=== PATIENT | female | born 1975 | race Caucasian/White ===

== ENCOUNTER 2017-02-07 13:57 | Outpatient (CLI) | payer MEDICAID ==
[2017-02-07 14:35] LABS: BASOPHILS % (AUTO) 0.7 %; EOSINOPHILS % (AUTO) 0.8 %; HCT - HEMATOCRIT 35.4 % (37.0-47.0); HGB - HEMOGLOBIN 11.9 g/dL (12.0-16.0); LYMPHOCYTES # (AUTO) 1.9 10^3/uL (1.5-3.5); LYMPHOCYTES % (AUTO) 34.7 %; MEAN CORPUSCULAR HEMOGLOBIN 30.6 pg (27.0-31.0); MEAN CORPUSCULAR HGB CONC 33.7 g/dL (32.0-36.0); MEAN PLATELET VOLUME 6.9 fL (7.9-10.8); MONOCYTES # (AUTO) 0.5 10^3/uL (0.0-1.0); MONOCYTES % (AUTO) 9.3 %; NEUTROPHILS % (AUTO) 54.5 %; NUCLEATED RED BLOOD CELLS AUTO 0.1 /100WBC; RED CELL DISTRIBUTION WIDTH 14.7 % (12.0-15.0); UNCORRECTED WHITE BLOOD COUNT 5.4 x10^3/uL; WHITE BLOOD COUNT 5.4 x10^3/uL (4.8-10.8)
[2017-02-07 14:57] LABS: ALBUMIN/GLOBULIN RATIO 1.5 (1.0-2.2); BILIRUBIN,TOTAL 0.6 mg/dL (0.2-1.0); BUN - BLOOD UREA NITROGEN 8 mg/dL (6-20); CALCIUM 9.1 mg/dL (8.5-10.3); CARBON DIOXIDE - CO2 27 mmol/L (21-32); CHLORIDE 100 mmol/L (101-111); CREATININE 0.7 mg/dL (0.4-1.0); GFR - MDRD 93 (>89); GLUCOSE 95 mg/dL (70-100); POTASSIUM 3.9 mmol/L (3.5-5.0); SODIUM 136 mmol/L (135-145); TOTAL PROTEIN 7.9 g/dL (6.7-8.2)
== END 2017-02-07 13:58 | disposition home or self-care (01) ==
LOC: LAB 13:57
PROVIDERS: ATTEND Registered Nurse
DX: Z79.899 Other long term (current) drug therapy (principal)
CPT/HCPCS: 36415; 80053; 80306; 84443; 85025

== ENCOUNTER 2017-11-07 16:45 | Emergency (ER) | payer MEDICAID ==
[2017-11-07] MEDS ORDERED: SODIUM CHLORIDE 0.9% 1,000 ML IV ONE (17:03)
--- NOTE | 2017-11-07 17:07 | ED Physician Documentation ---
PD HPI OVERDOSE - Stated complaint Stated Complaint: POSS OD - Chief complaint Chief Complaint: MHE - History obtained from History obtained from: Patient - History of Present Illness Timing - onset: Last night (At 0300 had some disagreement with her . Took Oxcarbazepine 300mg apprx 30 tabs, Also prazosin 100 mg about 30 tabs as well. She says she was not suicidal just frustrated and acted out of stupidity. At this point she feels sleepy but has no other symptoms. Specifically no nausea, chest pain, shortness of breath. 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 - Present Medications Home Medications: Ambulatory Orders Medication Instructions Recorded Confirmed Dextroamphetamine/Amphetamine 10 mg PO BID 06/27/13 06/27/13 [Amphetamine Salts 10 mg Tab] LORazepam [Ativan] 1 mg PO BID PRN 06/27/13 06/27/13 Lamotrigine 300 mg PO DAILY 06/27/13 06/27/13 Lurasidone HCl [Latuda] 80 mg PO DAILY 06/27/13 06/27/13 OXcarbazepine [Trileptal] 300 mg PO BID 06/27/13 06/27/13 Perphenazine 16 mg PO DAILY 06/27/13 06/27/13 Prazosin HCl [Minipress] 2 mg PO HS 06/27/13 06/27/13 traZODone [Desyrel] 100 mg PO HS 06/27/13 06/27/13 - Allergies Allergies/Adverse Reactions: Allergies Allergy/AdvReac Type Severity Reaction Status Date / Time Penicillins AdvReac Unknown unknown Verified 06/27/13 02:53 - Social History Does the pt smoke?: No Smoking Status: Never smoker Does the pt drink ETOH?: Yes Does the pt have substance abuse?: No - Immunizations Immunizations are current?: No Immunizations: TDAP >10years/unknown PD ED PE NORMAL - Vitals Vital signs reviewed: Yes (tachycardic) - General General: Alert and oriented X 3, Other (Slightly somnolent, NAD) - HEENT HEENT: Other (small pupils, reactive) - Neck Neck: Supple, no meningeal sign, No bony TTP - Cardiac Cardiac: RRR, No murmur - Respiratory Respiratory: No respiratory distress, Clear bilaterally - Abdomen Abdomen: Normal bowel sounds, Soft, Non tender - Back Back: No CVA TTP, No spinal TTP - Derm Derm: Normal color, Warm and dry - Extremities Extremities: No edema, No calf tenderness / cord - Neuro Neuro: Alert and oriented X 3, Normal speech Eye Opening: Spontaneous Motor: Obeys Commands Verbal: Oriented GCS Score: 15 - Psych Psych: Normal mood, Normal affect Results - Vitals Vitals: Vital Signs - 24 hr 11/07/17 11/07/17 16:46 18:55 Temperature 36.8 C Heart Rate 127 H 120 H Respiratory 18 18 Rate Blood Pressure 141/95 H 120/77 O2 Saturation 99 98 Oxygen O2 Source Room air - EKG (time done) 1706 Rate: Rate (enter#) (109) Rhythm: Sinus tachycardia Wheeler: Normal Intervals: Normal MO QRS: Normal Ischemia: Normal ST segments Computer interpretation: Agree with computer - Labs Labs: Laboratory Tests 11/07/17 11/07/17 11/07/17 17:15 17:15 18:10 WBC 6.0 RBC 3.55 L Hgb 10.6 L Hct 31.8 L MCV 89.6 MCH 29.8 MCHC 33.2 RDW 16.2 H Plt Count 288 MPV 6.7 L Neut # 4.4 Lymph # 1.0 L [place] # 0.5 Eos # 0.1 Baso # 0.1 Absolute Nucleated RBC 0.00 Nucleated RBC % 0.0 Sodium 136 Potassium 4.1 Chloride 102 Carbon Dioxide 21 Anion Gap 13.0 BUN 10 Creatinine 0.7 Estimated GFR (MDRD) 93 Glucose 105 H Calcium 8.6 Total Bilirubin 0.6 AST 32 ALT 18 Alkaline Phosphatase 43 Total Protein 7.2 Albumin 4.2 Globulin 3.0 Albumin/Globulin Ratio 1.4 Lipase < 10 L Urine Color YELLOW Urine Clarity CLOUDY Urine pH 5.0 Ur Specific [place] >=1.030 H Urine Protein NEGATIVE Urine Glucose (UA) NEGATIVE Urine Ketones NEGATIVE Urine Occult Blood TRACE-LYSE Urine Nitrite POSITIVE H Urine Bilirubin NEGATIVE Urine Urobilinogen 0.2 (NORMAL) Ur Leukocyte Esterase TRACE H Urine RBC 0-5 Urine WBC 6-10 H Ur Squamous Epith Cells MANY Squamous H Urine Bacteria Moderate H Ur Microscopic Review INDICATED Urine Culture Comments NOT INDICATED Urine HCG, Qual NEGATIVE Salicylates < 6.0 Urine Opiates Screen NEGATIVE Ur Oxycodone Screen NEGATIVE Urine Methadone Screen NEGATIVE Ur Propoxyphene Screen NEGATIVE Acetaminophen < 10 L Ur Barbiturates Screen NEGATIVE Ur Tricyclics Screen POSITIVE H Ur Phencyclidine Scrn NEGATIVE Ur Amphetamine Screen NEGATIVE U Methamphetamines Scrn NEGATIVE U Benzodiazepines Scrn NEGATIVE Urine Cocaine Screen NEGATIVE U Cannabinoids Screen NEGATIVE Ethyl Alcohol < 5.0 PD MEDICAL DECISION MAKING - ED course ED course: Called poison control, given the time course, now about 14 hours after the events, risk of toxicity is low but they do recommend baseline labs and EKG, on which her QRS and QTc were normal. The corroborates when interviewed in private that he does not think she is suicidal. Heart rate came down to about 105 with the administration of IV fluids. She was sleepy but easily arousable and managed to ambulate in the [place] without difficulty. She was interviewed again and still denied suicidality. No sx of UTI and +squams. Departure - Departure Disposition: 01 Home, Self Care Clinical Impression: Anger reaction Drug overdose Qualifiers: Encounter type: initial encounter Injury intent: accidental or unintentional Qualified Code(s): T50.901A - Poisoning by unspecified drugs, medicaments and biological substances, accidental (unintentional), initial encounter Condition: Good Record reviewed to determine appropriate education?: Yes Instructions: ED Overdose Accidental Comments: Be careful with your medications and take them only as prescribed. Return if worse. No driving for 48 hours. Discharge Date/Time: 11/07/17 19:07
[2017-11-07 17:29] LABS: BASOPHILS # (AUTO) 0.1 10^3/uL (0.0-0.1); BASOPHILS % (AUTO) 1.1 %; EOSINOPHILS # (AUTO) 0.1 10^3/uL (0.0-0.7); HGB - HEMOGLOBIN 10.6 g/dL (12.0-16.0); MEAN CORPUSCULAR HEMOGLOBIN 29.8 pg (27.0-31.0); MEAN CORPUSCULAR HGB CONC 33.2 g/dL (32.0-36.0); MEAN CORPUSCULAR VOLUME 89.6 fL (81.0-99.0); MEAN PLATELET VOLUME 6.7 fL (7.9-10.8); MONOCYTES # (AUTO) 0.5 10^3/uL (0.0-1.0); MONOCYTES % (AUTO) 8.4 %; NEUTROPHILS # (AUTO) 4.4 10^3/uL (1.5-6.6); NEUTROPHILS % (AUTO) 73.5 %; PLT - PLATELET COUNT 288 10^3/uL (130-450); RED BLOOD COUNT 3.55 10^6/uL (4.20-5.40); RED CELL DISTRIBUTION WIDTH 16.2 % (12.0-15.0)
[2017-11-07 17:45] LABS: ACETAMINOPHEN < 10 ug/mL (10-30); ALBUMIN 4.2 g/dL (3.2-5.5); ALBUMIN/GLOBULIN RATIO 1.4 (1.0-2.2); ALKALINE PHOSPHATASE 43 IU/L (42-121); ALT ALANINE AMINOTRANSFERASE 18 IU/L (10-60); AST ASPARTATE AMINOTRANSFERASE 32 IU/L (10-42); BILIRUBIN,TOTAL 0.6 mg/dL (0.2-1.0); BUN - BLOOD UREA NITROGEN 10 mg/dL (6-20); CALCIUM 8.6 mg/dL (8.5-10.3); CARBON DIOXIDE - CO2 21 mmol/L (21-32); CHLORIDE 102 mmol/L (101-111); CREATININE 0.7 mg/dL (0.4-1.0); GFR - MDRD 93 (>89); GLUCOSE 105 mg/dL (70-100); LIPASE < 10 U/L (22-51); SALICYLATE < 6.0 mg/dL; SODIUM 136 mmol/L (135-145); TOTAL PROTEIN 7.2 g/dL (6.7-8.2)
[2017-11-07 18:21] LABS: MUDS CUTOFF CONCENTRATIONS CUTOFF CONC BELOW:
[2017-11-07 18:29] LABS: GLUCOSE, URINE (UA) NEGATIVE (NEGATIVE); KETONES,URINE (UA) NEGATIVE (NEGATIVE); LEUKOCYTE ESTERASE, URINE TRACE (NEGATIVE); NITRITE,URINE POSITIVE (NEGATIVE); OCCULT BLOOD,URINE TRACE-LYSE (NEGATIVE); PROTEIN,URINE NEGATIVE (NEGATIVE); UROBILINOGEN,URINE 0.2 (NORMAL) E.U./dL (NORMAL)
[2017-11-07 18:31] LABS: BILIRUBIN,URINE NEGATIVE (NEGATIVE); CLARITY,URINE CLOUDY (CLEAR); HCG UR QUAL NEGATIVE; ICTOTEST,URINE NEGATIVE
[2017-11-07 18:36] LABS: COCAINE SCREEN URINE NEGATIVE (NEGATIVE)
[2017-11-07 18:37] LABS: AMPHETAMINE SCREEN,URINE NEGATIVE (NEGATIVE); BENZODIAZEPINES SCREEN, URINE NEGATIVE (NEGATIVE); METHADONE SCREEN, URINE NEGATIVE (NEGATIVE); METHAMPHETAMINES SCREEN, URINE NEGATIVE (NEGATIVE); OPIATE SCREEN, URINE NEGATIVE (NEGATIVE); OXYCODONE SCREEN, URINE NEGATIVE (NEGATIVE); PROPOXYPHENE SCREEN, URINE NEGATIVE (NEGATIVE); TRICYCLIC ANTIDEPRESSANT,URINE POSITIVE (NEGATIVE)
[2017-11-07 18:41] LABS: BACTERIA,URINE Moderate /HPF (None Seen); RBC,URINE 0-5 /HPF (0-5); SQUAMOUS EPITHELIAL CELL,UR MANY Squamous (<= Few)
[2017-11-07 19:06] VITALS: BP 120/77
== END 2017-11-07 19:07 | disposition home or self-care (01) ==
LOC: ED 16:45
DX: T42.1X1A Poisoning by iminostilbenes, accidental (unintentional), initial encounter (principal); T44.6X1A Poisoning by alpha-adrenoreceptor antagonists, accidental (unintentional), initial encounter; R00.0 Tachycardia, unspecified; R45.4 Irritability and anger
CPT/HCPCS: 36415; 80053; 80306; 80307; 80320; 80329; 81001; 81003; 81025; 83690; 85025; 87086; 93005; 96360; 99283; 99284

== ENCOUNTER 2017-12-22 00:49 | Outpatient (CLI) | payer MEDICAID | END 2017-12-22 00:50 | disposition EMS.NT | LOC: EMS 00:49 | PROVIDERS: ATTEND Surgery | DX: T54.2X1A Toxic effect of corrosive acids and acid-like substances, accidental (unintentional), initial encounter (principal); T22.511A Corrosion of first degree of right forearm, initial encounter; Y93.E9 Activity, other interior property and clothing maintenance; Y92.031 Bathroom in apartment as the place of occurrence of the external cause ==

== ENCOUNTER 2018-01-31 10:16 | Emergency (ER) | payer MEDICAID, OTHER ==
[2018-01-31] MEDS ORDERED: ONDANSETRON ODT 4 MG TABLET TL STA (10:24)
--- NOTE | 2018-01-31 12:02 | ED Physician Documentation ---
PD HPI NVD - Stated complaint Stated Complaint: FIT FOR CONFINEMENT - Chief complaint Chief Complaint: Abd Pain - History obtained from History obtained from: Patient, Police - History of Present Illness Timing - onset: Enter time (2300), Last night Timing - duration: Hours Timing - details: Abrupt onset, Still present Associated symptoms: Abdominal pain Improved by: Vomiting, Meds Worsened by: Eating Similar symptoms before: No diagnosis Recently seen: Not recently seen - Additonal information Additional information: 42-year-old female with a history of substance abuse has had intermittent nausea and vomiting over the past several months. She has not seen her doctor about this. She states that symptoms typically last from several hours to overnight. This is sometimes accompanied by some abdominal pain. She has been apprehended by police and is being taken into custody and they have brought her here for fit for confinement. The patient states that she began having some vomiting last night at about 11 PM. She is improved after taking Zofran on arrival to the emergency department. Review of Systems Constitutional: denies: Fever Eyes: denies: Decreased vision Ears: denies: Ear pain Nose: denies: Congestion Throat: denies: Sore throat Cardiac: denies: Chest pain / pressure Respiratory: denies: Dyspnea, Cough GI: reports: Abdominal Pain, Nausea, Vomiting. 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 - Present Medications Home Medications: Ambulatory Orders Medication Instructions Recorded Confirmed Ondansetron Odt [Zofran] 4 mg TL Q6H PRN #10 tablet 01/31/18 - Allergies Allergies/Adverse Reactions: Allergies Allergy/AdvReac Type Severity Reaction Status Date / Time Penicillins AdvReac Unknown unknown Verified 01/31/18 10:20 - Social History Does the pt smoke?: No Smoking Status: Never smoker Does the pt drink ETOH?: Yes Does the pt have substance abuse?: No - Immunizations Immunizations are current?: No Immunizations: TDAP >10years/unknown PD ED PE NORMAL - Vitals Vital signs reviewed: Yes (hypertensive ) - General General: Alert and oriented X 3, No acute distress, Well developed/nourished - HEENT HEENT: Atraumatic, PERRL, EOMI - Neck Neck: Supple, no meningeal sign, No bony TTP - Cardiac Cardiac: RRR, No murmur - Respiratory Respiratory: No respiratory distress, Clear bilaterally - Abdomen Abdomen: Soft, No organomegaly, Other (mild epigastric tenderness without guarding or rebound. ) - Back Back: No CVA TTP, No spinal TTP - Derm Derm: Normal color, Warm and dry, No rash - Extremities Extremities: No deformity, No edema - Neuro Neuro: No motor deficit, No sensory deficit Eye Opening: Spontaneous Motor: Obeys Commands Verbal: Oriented GCS Score: 15 - Psych Psych: Normal mood, Normal affect Results - Vitals Vitals: Vital Signs - 24 hr 01/31/18 10:17 Temperature 36.5 C Heart Rate 47 L Respiratory 18 Rate Blood Pressure 116/95 H O2 Saturation 95 Oxygen O2 Source Room air Procedures - Bedside sono Bedside sono by EMP: With the use of bedside ultrasound the right upper quadrant is imaged with gallbladder appears without obvious stone the wall does not appear thickened there is no pericholecystic fluid. The gallbladder itself is sonographically nontender. - IVC sono (time) 1115 Bedside IVC sono: IVC measures (cm) (1.27), IVC collapsed c insp (cm) (complete) , Dehydration (est 1 liter) PD MEDICAL DECISION MAKING - ED course Complexity details: reviewed results, re-evaluated patient, considered differential, d/w patient ED course: 42-year-old female is brought to the hospital by police for fit for confinement. She has been vomiting since last night and on interrogation of the inferior vena cava she is found to be mildly dehydrated with an estimated deficit of 1 L. She is administered Zofran sublingual and is able to drink a liter of fluid without vomiting. She is discharged from the emergency department for for confinement. Departure - Departure Disposition: 01 Home, Self Care Clinical Impression: Gastroenteritis Condition: Stable Instructions: ED Nausea Vomiting Follow-Up: [facility] [Provider Group] Prescriptions: Ondansetron Odt [Zofran] 4 mg TL Q6H PRN #10 tablet PRN Reason: Nausea / Vomiting
[2018-01-31 12:28] VITALS: BP 103/87
== END 2018-01-31 12:28 | disposition home or self-care (01) ==
LOC: EDUNIT# → ED 10:16
DX: K52.9 Noninfective gastroenteritis and colitis, unspecified (principal); E86.0 Dehydration
CPT/HCPCS: 99283; Q0162

== ENCOUNTER 2018-06-13 09:49 | Emergency (ER) | payer MEDICAID, OTHER ==
[2018-06-13] MEDS ORDERED: MELOXICAM 7.5 MG TABLET PO STA (10:56)
--- NOTE | 2018-06-13 11:04 | ED Physician Documentation ---
PD HPI LOWER EXT INJURY - Stated complaint Stated Complaint: KNEE PX - Chief complaint Chief Complaint: Ext Problem - History obtained from History obtained from: Patient, Family - History of Present Illness PD HPI LOW EXT INJURY LOCATION: Right, Knee Type of injury: Fall Where injury occurred: Home Timing - onset: Last night Timing - duration: Days (1) Timing - details: Abrupt onset Pain level max: 8 Pain level now: 8 Improved by: Rest, Ice, Immobilization Worsened by: Moving, Palpating Associated symptoms: No: Weakness, Numbness, Tingling, Swelling Contributing factors: No: Anticoagulated, Prior ortho surgery Recently seen: Not recently seen - Additional information Additional information: Patient tripped and fell, landing on the concrete on her right knee, continued pain today Review of Systems Constitutional: denies: Fever, Chills GI: denies: Vomiting : denies: Now EGA Skin: denies: Rash Musculoskeletal: denies: Neck pain, Back pain PD PAST MEDICAL HISTORY - Past Medical History Past Medical History: No Cardiovascular: None Respiratory: None Neuro: None Endocrine/Autoimmune: Type 1 diabetes GI: None 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: 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 : None HEENT: None Psych: Depression, Post traumatic stress disorder Musculoskeletal: None Derm: None - Past Surgical History 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: Yes Immunizations: TDAP >10years/unknown - POLST Patient has POLST: No PD ED PE NORMAL - Vitals Vital signs reviewed: Yes - General General: Alert and oriented X 3, No acute distress - Derm Derm: Warm and dry - Extremities Extremities: Other (Right lower extremity - Tender to palpation over the anterior aspect of the patella. No joint effusion. ACL, MCL, PCL, LCL are intact. Otherwise normal exam. NVI) - Neuro Neuro: Alert and oriented X 3 Results - Vitals Vitals: Vital Signs - 24 hr 06/13/18 10:24 Temperature 36.6 C Heart Rate 88 Respiratory 18 Rate Blood Pressure 145/85 H O2 Saturation 96 Oxygen O2 Source Room air - Rads (name of study) Right knee x-ray Radiology: Prelim report reviewed, EMP read contemporaneously, See rad report (Normal x-ray of the right knee) PD MEDICAL DECISION MAKING - ED course Complexity details: reviewed results, re-evaluated patient, considered differential, d/w patient ED course: Patient is a 42-year-old female who presents to the emergency department with a right knee contusion. Crutches given and will weight-bear as tolerated. Kennedy wrap also applied. Patient counseled regarding signs and symptoms for which I believe and urgent re-evaluation would be necessary. Patient with good understanding of and agreement to plan and is comfortable going home at this time This document was made in part using voice recognition software. While efforts are made to proofread this document, sound alike and grammatical errors may occur. - Sepsis Event Vital Signs: Vital Signs - 24 hr 06/13/18 10:24 Temperature 36.6 C Heart Rate 88 Respiratory 18 Rate Blood Pressure 145/85 H O2 Saturation 96 Oxygen O2 Source Room air Departure - Departure Disposition: 01 Home, Self Care Clinical Impression: Contusion of knee, right Qualifiers: Encounter type: initial encounter Qualified Code(s): S80.01XA - Contusion of right knee, initial encounter Condition: Good Instructions: ED Contusion Lower Ext Follow-Up: your,doctor in 1 week [Other] Prescriptions: Ibuprofen [Motrin] 800 mg PO Q8H PRN #30 tablet PRN Reason: PAIN &/OR FEVER Comments: Return if you worsen. You may bear weight as tolerated. your xrays are normal today. Forms: Activity restrictions Discharge Date/Time: 06/13/18 12:07
--- NOTE | 2018-06-13 11:38 | XRAY Report ---
Reason: injury Procedure Date: 06/13/2018 Accession Number: [id number] / [id number] Procedure: XR - Knee 4 View RT CPT Code: FULL RESULT: EXAM: RIGHT KNEE RADIOGRAPHY EXAM DATE: 06/13/2018 11:02 AM. CLINICAL HISTORY: Pain and decreased range of motion after falling on well cover. COMPARISON: None. TECHNIQUE: 4 views. FINDINGS: Bones: Normal. No fractures or bone lesions. Joints: Normal. No effusion. No subluxations. Soft Tissues: Probable anterior soft tissue swelling. IMPRESSION: No acute osseous abnormality. RADIA
[2018-06-13 12:06] VITALS: BP 136/72
== END 2018-06-13 12:07 | disposition home or self-care (01) ==
LOC: ED 09:49
DX: S80.01XA Contusion of right knee, initial encounter (principal); W01.198A Fall on same level from slipping, tripping and stumbling with subsequent striking against other object, initial encounter; Y92.009 Unspecified place in unspecified non-institutional (private) residence as the place of occurrence of the external cause; E10.9 Type 1 diabetes mellitus without complications
CPT/HCPCS: 73564; 99283; A9270

== ENCOUNTER 2018-07-02 22:54 | Outpatient (CLI) | payer MEDICAID | END 2018-07-02 22:55 | disposition EMS.NT | LOC: EMS 22:54 | PROVIDERS: ATTEND Surgery | DX: S41.112A Laceration without foreign body of left upper arm, initial encounter (principal); S41.111A Laceration without foreign body of right upper arm, initial encounter; X78.9XXA Intentional self-harm by unspecified sharp object, initial encounter ==

== ENCOUNTER 2018-10-22 00:25 | Outpatient (CLI) | payer MEDICAID | END 2018-10-22 00:26 | disposition critical access hospital (66) | LOC: EMS 00:25 | PROVIDERS: ATTEND Surgery | DX: R45.851 Suicidal ideations (principal) | CPT/HCPCS: A0425; A0429 ==

== ENCOUNTER 2018-10-22 00:43 | Emergency (ER) | payer MEDICAID ==
[2018-10-22 01:16] LABS: MUDS CUTOFF CONCENTRATIONS CUTOFF CONC BELOW:
[2018-10-22 01:18] LABS: BILIRUBIN,URINE NEGATIVE (NEGATIVE); GLUCOSE, URINE (UA) NEGATIVE (NEGATIVE); KETONES,URINE (UA) NEGATIVE (NEGATIVE); LEUKOCYTE ESTERASE, URINE NEGATIVE (NEGATIVE); NITRITE,URINE NEGATIVE (NEGATIVE); OCCULT BLOOD,URINE NEGATIVE (NEGATIVE); PH,URINE 5.5 PH (5.0-7.5); PROTEIN,URINE NEGATIVE (NEGATIVE); UROBILINOGEN,URINE 0.2 (NORMAL) E.U./dL (NORMAL)
[2018-10-22 01:20] LABS: CLARITY,URINE CLEAR (CLEAR); HCG UR QUAL NEGATIVE
[2018-10-22 01:29] LABS: AMPHETAMINE SCREEN,URINE NEGATIVE (NEGATIVE); BENZODIAZEPINES SCREEN, URINE NEGATIVE (NEGATIVE); COCAINE SCREEN URINE NEGATIVE (NEGATIVE); METHADONE SCREEN, URINE NEGATIVE (NEGATIVE); METHAMPHETAMINES SCREEN, URINE NEGATIVE (NEGATIVE); OPIATE SCREEN, URINE NEGATIVE (NEGATIVE); OXYCODONE SCREEN, URINE NEGATIVE (NEGATIVE); PROPOXYPHENE SCREEN, URINE NEGATIVE (NEGATIVE); TRICYCLIC ANTIDEPRESSANT,URINE NEGATIVE (NEGATIVE)
[2018-10-22 01:37] LABS: BASOPHILS # (AUTO) 0.1 10^3/uL (0.0-0.1); BASOPHILS % (AUTO) 0.9 %; EOSINOPHILS # (AUTO) 0.1 10^3/uL (0.0-0.7); EOSINOPHILS % (AUTO) 0.9 %; LYMPHOCYTES # (AUTO) 1.7 10^3/uL (1.5-3.5); LYMPHOCYTES % (AUTO) 22.6 %; MEAN CORPUSCULAR HEMOGLOBIN 31.7 pg (27.0-31.0); MEAN CORPUSCULAR HGB CONC 33.7 g/dL (32.0-36.0); MEAN PLATELET VOLUME 6.5 fL (7.9-10.8); MONOCYTES # (AUTO) 0.8 10^3/uL (0.0-1.0); MONOCYTES % (AUTO) 10.9 %; NEUTROPHILS % (AUTO) 64.7 %; PLT - PLATELET COUNT 344 10^3/uL (130-450); RED BLOOD COUNT 3.78 10^6/uL (4.20-5.40); RED CELL DISTRIBUTION WIDTH 14.9 % (12.0-15.0); WHITE BLOOD COUNT 7.7 x10^3/uL (4.8-10.8)
[2018-10-22 01:49] LABS: ALBUMIN/GLOBULIN RATIO 1.2 (1.0-2.2); BILIRUBIN,TOTAL 0.4 mg/dL (0.2-1.0); CALCIUM 8.5 mg/dL (8.5-10.3); CREATININE 0.5 mg/dL (0.4-1.0); TOTAL PROTEIN 7.4 g/dL (6.7-8.2)
[2018-10-22] MEDS ORDERED: OLANZapine ODT 5 MG TABLET TL ONE (03:06)
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
--- NOTE | 2018-10-22 11:33 | ED Physician Documentation ---
ED Addendum - Addendum Addendum: The patient has slept overnight and is sober now. She denies any [facility] ideation at this point. She is feeling a little bit anxious. Social work talked with her in do not see any suicide risk at this time. I am talking with her and she promises no self-harm and has no self-harm ideation and states she really cares about her kids and wants to be there for them. I think she can be released. She has a counseling appointment being set up. 10/22/18 11:32
[2018-10-22 11:35] VITALS: BP 138/86
[2018-10-22] MEDS ORDERED: LORazepam 0.5 MG TABLET PO STA (11:36)
== END 2018-10-22 11:38 | disposition home or self-care (01) ==
LOC: EDUNIT# → ED 00:43
DX: F10.920 Alcohol use, unspecified with intoxication, uncomplicated (principal); T14.91XA Suicide attempt, initial encounter; X78.8XXA Intentional self-harm by other sharp object, initial encounter; E10.9 Type 1 diabetes mellitus without complications
CPT/HCPCS: 36415; 80053; 80306; 80320; 81001; 81003; 81025; 83690; 85025; 87086; 99283

== ENCOUNTER 2019-01-31 14:12 | Outpatient (CLI) | payer MEDICAID ==
[2019-01-31 18:57] LABS: BASOPHILS # (AUTO) 0.1 10^3/uL (0.0-0.1); BASOPHILS % (AUTO) 2.2 %; EOSINOPHILS # (AUTO) 0.1 10^3/uL (0.0-0.7); EOSINOPHILS % (AUTO) 2.3 %; HGB - HEMOGLOBIN 11.7 g/dL (12.0-16.0); LYMPHOCYTES # (AUTO) 1.3 10^3/uL (1.5-3.5); LYMPHOCYTES % (AUTO) 33.7 %; MEAN CORPUSCULAR HEMOGLOBIN 31.2 pg (27.0-31.0); MEAN CORPUSCULAR HGB CONC 32.8 g/dL (32.0-36.0); MEAN CORPUSCULAR VOLUME 95.1 fL (81.0-99.0); MEAN PLATELET VOLUME 7.5 fL (7.9-10.8); MONOCYTES # (AUTO) 0.5 10^3/uL (0.0-1.0); MONOCYTES % (AUTO) 12.7 %; NEUTROPHILS # (AUTO) 1.9 10^3/uL (1.5-6.6); NEUTROPHILS % (AUTO) 49.1 %; PLT - PLATELET COUNT 286 10^3/uL (130-450); RED BLOOD COUNT 3.74 10^6/uL (4.20-5.40); RED CELL DISTRIBUTION WIDTH 13.4 % (12.0-15.0); WHITE BLOOD COUNT 3.8 x10^3/uL (4.8-10.8)
[2019-01-31 19:40] LABS: ALBUMIN/GLOBULIN RATIO 1.3 (1.0-2.2); ALKALINE PHOSPHATASE 56 IU/L (42-121); ALT ALANINE AMINOTRANSFERASE 17 IU/L (10-60); AST ASPARTATE AMINOTRANSFERASE 24 IU/L (10-42); BILIRUBIN,TOTAL 0.7 mg/dL (0.2-1.0); BUN - BLOOD UREA NITROGEN 10 mg/dL (6-20); CALCIUM 8.6 mg/dL (8.5-10.3); CARBON DIOXIDE - CO2 23 mmol/L (21-32); CHLORIDE 100 mmol/L (101-111); CHOL/HDL RATIO 2.4 (<4.4); CHOLESTEROL 181 mg/dL; CREATININE 0.6 mg/dL (0.4-1.0); GFR - MDRD 110 (>89); GLUCOSE 91 mg/dL (70-100); HDL CHOLESTEROL 76 mg/dL; LDL CHOLESTEROL,CALCULATED 93 mg/dL; LDL/HDL RATIO 1.2 (<4.4); SODIUM 134 mmol/L (135-145); TOTAL PROTEIN 7.1 g/dL (6.7-8.2); VLDL CHOLESTEROL 12 mg/dL
[2019-01-31 19:44] LABS: THYROID STIMULATING HORMONE 0.78 uIU/mL (0.34-5.60)
[2019-01-31 19:56] LABS: FOLATE 9.28 ng/mL (5.90 - >24.8)
== END 2019-01-31 23:59 | disposition home or self-care (01) ==
LOC: LAB.N 14:12
PROVIDERS: ATTEND Physician Assistant Medical
DX: I10 Essential (primary) hypertension (principal); E55.9 Vitamin D deficiency, unspecified; R53.83 Other fatigue
CPT/HCPCS: 36415; 80053; 80061; 82306; 82607; 82746; 83721; 84443; 85025

== ENCOUNTER 2019-02-12 05:19 | Outpatient (CLI) | payer MEDICAID | END 2019-02-12 05:20 | disposition EMS.NT | LOC: EMS 05:19 | PROVIDERS: ATTEND Surgery | DX: Z03.89 Encounter for observation for other suspected diseases and conditions ruled out (principal) ==

== ENCOUNTER 2019-06-05 15:42 | Emergency (ER) | payer MEDICAID ==
[2019-06-05 15:48] VITALS: BP 147/88
[2019-06-05] MEDS ORDERED: DOXEPIN 10 MG CAPSULE PO STA (15:58)
[2019-06-05] MEDS ORDERED: predniSONE 20 MG TABLET PO STA (15:58)
[2019-06-05] MEDS ORDERED: cephALEXin 250 MG CAPSULE PO STA (15:58)
--- NOTE | 2019-06-05 16:01 | ED Physician Documentation ---
PD HPI SKIN - Stated complaint Stated Complaint: R ARM IRRITATION - Chief complaint Chief Complaint: Wound - History obtained from History obtained from: Patient - History of Present Illness Timing - onset: Yesterday (She thinks she was bitten by something yesterday at work, she has a burning area on to the anterior right forearm. There was no recollected bite. 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: section - Present Medications Home Medications: Ambulatory Orders Medication Instructions Recorded Confirmed Cephalexin [Keflex] 500 mg PO Q6H #28 capsule 06/05/19 Doxepin [SINEquan] 10 mg PO TID PRN #30 capsule 06/05/19 predniSONE [Deltasone] 60 mg PO DAILY 5 Days #15 tablet 06/05/19 - Allergies Allergies/Adverse Reactions: Allergies Allergy/AdvReac Type Severity Reaction Status Date / Time bee venom protein (honey bee) Allergy Severe Anaphylaxis Verified 06/05/19 15:45 Penicillins Allergy Severe Anaphylaxis Verified 06/05/19 15:45 - Social History Does the pt smoke?: No Smoking Status: Never smoker Does the pt drink ETOH?: No Does the pt have substance abuse?: No - Immunizations Immunizations are current?: Yes Immunizations: TDAP >10years/unknown - POLST Patient has POLST: No PD ED PE NORMAL - Vitals Vital signs reviewed: Yes - General General: Alert and oriented X 3, No acute distress (There is a small area of induration and redness measuring in diameter to the anterior mid right forearm.) - Neuro Neuro: Alert and oriented X 3, Normal speech - Psych Psych: Normal mood, Normal affect Results - Vitals Vitals: Vital Signs - 24 hr 06/05/19 15:45 Temperature 36.7 C Heart Rate 106 H Respiratory 16 Rate Blood Pressure 147/88 H O2 Saturation 100 Oxygen O2 Source Room air Departure - Departure Disposition: 01 Home, Self Care Clinical Impression: Insect bite Qualifiers: Encounter type: initial encounter Site of insect bite: forearm Laterality: right Qualified Code(s): S50.861A - Insect bite (nonvenomous) of right forearm, initial encounter; W57.XXXA - Bitten or stung by nonvenomous insect and other nonvenomous arthropods, initial encounter Condition: Good Record reviewed to determine appropriate education?: Yes Instructions: ED Bite Sting Insect Local Allergic React Prescriptions: Cephalexin [Keflex] 500 mg PO Q6H #28 capsule Doxepin [SINEquan] 10 mg PO TID PRN #30 capsule PRN Reason: Itching predniSONE [Deltasone] 60 mg PO DAILY 5 Days #15 tablet Comments: RETURN IF WORSE Follow-up with your doctor on Monday if not better. Your blood pressure was elevated today on check into the emergency department. This does not mean that you have hypertension, it is a common phenomenon to come to the emergency department and have elevated blood pressure. I recommend that you see your primary care physician within the week to have it rechecked when you are feeling better.
== END 2019-06-05 16:12 | disposition home or self-care (01) ==
LOC: ED 15:42
DX: S50.861A Insect bite (nonvenomous) of right forearm, initial encounter (principal); W57.XXXA Bitten or stung by nonvenomous insect and other nonvenomous arthropods, initial encounter; Y92.511 Restaurant or cafe as the place of occurrence of the external cause; Y99.0 Civilian activity done for income or pay; E10.9 Type 1 diabetes mellitus without complications; R03.0 Elevated blood-pressure reading, without diagnosis of hypertension
CPT/HCPCS: 99283; A9270; J7512

== ENCOUNTER 2020-01-14 01:54 | Outpatient (CLI) | payer MEDICAID | END 2020-01-14 01:55 | disposition EMS.NT | LOC: EMS 01:54 | PROVIDERS: ATTEND Surgery | DX: R07.9 Chest pain, unspecified (principal) ==

== ENCOUNTER 2020-07-04 16:36 | Outpatient (CLI) | payer MEDICAID ==
--- NOTE | 2020-07-04 18:52 | Ultrasound Report ---
PROCEDURE: Pelvic w/Transvaginal INDICATIONS: ABN UTERINE BLEEDING, PELVIC PAIN TECHNIQUE: Real-time scanning was performed of the pelvic organs, with image documentation. Additional endovagi nal scanning was necessary due to incomplete visualization of the adnexal and endometrial structures by transabdominal scanning. COMPARISON: None. FINDINGS: Transabdominal scanning: Limited scanning through the kidneys shows no hydronephrosis. No pathologi c free abdominal or pelvic fluid. Endovaginal scanning: Uterus: Uterus is normal in size at 10.3 x 5 x 5.9 cm. The uterus demonstrates generalized heteroge neity, yet without focal fibroids. The endometrium measures 8 mm in combined thickness. Fluid is see n along the cervix. Nabothian cysts are incidentally noted. Ovaries: The right ovary measures 1.6 x 1.7 x 2.4 cm and the left ovary measures 1.9 x 2.2 x 1.4 cm. No significant ovarian abnormalities are seen. There are less than 12 follicles seen on each side. No adnexal masses are seen. IMPRESSION: Normal-appearing endometrial stripe with a mild amount of fluid seen along the cervix. No focal uterine lesion can be seen. The ovaries demonstrate an unremarkable appearance, with physiologic follicles seen.. Reviewed by: Vinod Easley MD on 07/04/2020 5:50 PM TONEY Approved by: Vinod Easley MD on 07/04/2020 5:50 PM TONEY Station ID: [id number]
== END 2020-07-04 16:37 | disposition home or self-care (01) ==
LOC: DI 16:36
PROVIDERS: ATTEND Obstetrics & Gynecology
DX: N93.8 Other specified abnormal uterine and vaginal bleeding (principal); R10.2 Pelvic and perineal pain
CPT/HCPCS: 76830; 76856

== ENCOUNTER 2020-07-24 15:48 | Outpatient (CLI) | payer MEDICAID ==
[2020-07-24 16:22] LABS: BASOPHILS # (AUTO) 0.1 10^3/uL (0.0-0.1); BASOPHILS % (AUTO) 1.5 %; EOSINOPHILS # (AUTO) 0.1 10^3/uL (0.0-0.7); EOSINOPHILS % (AUTO) 2.1 %; HGB - HEMOGLOBIN 12.1 g/dL (12.0-16.0); LYMPHOCYTES # (AUTO) 1.8 10^3/uL (1.5-3.5); LYMPHOCYTES % (AUTO) 29.5 %; MEAN CORPUSCULAR HGB CONC 32.6 g/dL (32.0-36.0); MEAN CORPUSCULAR VOLUME 98.1 fL (81.0-99.0); MEAN PLATELET VOLUME 9.4 fL (7.9-10.8); MONOCYTES # (AUTO) 0.8 10^3/uL (0.0-1.0); MONOCYTES % (AUTO) 12.5 %; NEUTROPHILS # (AUTO) 3.3 10^3/uL (1.5-6.6); NEUTROPHILS % (AUTO) 53.9 %; PLT - PLATELET COUNT 404 10^3/uL (130-450); RED BLOOD COUNT 3.78 10^6/uL (4.20-5.40); RED CELL DISTRIBUTION WIDTH 12.6 % (12.0-15.0); WHITE BLOOD COUNT 6.2 x10^3/uL (4.8-10.8)
== END 2020-07-24 15:49 | disposition home or self-care (01) ==
LOC: LAB 15:48
PROVIDERS: ATTEND Obstetrics & Gynecology
DX: Z01.818 Encounter for other preprocedural examination (principal); N92.0 Excessive and frequent menstruation with regular cycle; N93.8 Other specified abnormal uterine and vaginal bleeding; R10.2 Pelvic and perineal pain; Z20.828 Contact with and (suspected) exposure to other viral communicable diseases
CPT/HCPCS: 85025

== ENCOUNTER 2020-07-29 10:37 | Day surgery (SDC) | payer MEDICAID ==
[2020-07-29] MEDS ORDERED: PROPOFOL 1000 MG/100 ML IV ONE (10:38)
[2020-07-29] MEDS ORDERED: MIDAZOLAM 2 MG/2 ML VIAL IVP ONE (10:38)
[2020-07-29] MEDS ORDERED: fentaNYL 100 MCG/2 ML VIAL IVP ONE (10:38)
[2020-07-29] MEDS ORDERED: LACTATED RINGERS 1,000 ML IV ONE ×2 (11:00→17:47)
[2020-07-29 11:18] LABS: HCG UR QUAL NEGATIVE
--- NOTE | 2020-07-29 12:48 | ANESTHESIA ---
Pre-Anesthesia VS, & Labs - Diagnosis LUIS-3 - Procedure Leep under anesthesia Vital Signs: Temp Pulse Resp BP Pulse Ox 36.3 C L 72 18 127/78 98 07/29/20 11:01 07/29/20 11:01 07/29/20 11:01 07/29/20 11:01 07/29/20 11:01 Height: 5 ft Weight (kg): 60.9 kg Body Mass Index: 26.2 BMI Classification: Overweight - NPO >8 hours - Is Patient ?: No - Lab Results Lab results reviewed: Yes Home Medications and Allergies No Known Home Medications 07/20/20 Allergies/Adverse Reactions: Allergies Allergy/AdvReac Type Severity Reaction Status Date / Time bee venom protein (honey bee) Allergy Severe Anaphylaxis Verified 06/05/19 15:45 Penicillins Allergy Severe Anaphylaxis Verified 06/05/19 15:45 Anes History & Medical History - Anesthetic History Anesthesia Complications: reports: Other-see comment (Hives from something during ) Family history of Anesthesia Complications: Denies Family history of Malignant Hyperthermia: Denies - Medical History Cardiovascular: reports: Hypertension (No meds. WNL today) Pulmonary: reports: Sleep apnea (Per -is to go for sleep study) Gastrointestinal: reports: None Urinary: reports: None Neuro: reports: None Musculoskeletal: reports: None Endocrine/Autoimmune: reports: Other (Denies diabetes) Skin: reports: None Smoking Status: Never smoker Psychosocial: reports: Depression, Anxiety, Alcohol (No alcohol x 18 days. She and stopped, felt were drinking to much. No withdrawal sx.), Other (PTSD) History of Cancer?: No - Surgical History Gynecologic: section Exam General: Alert, Oriented x3, Cooperative, No acute distress Dental: WNL Mouth Openin Fingerbreadth Neck Mobility: Normal Mallampati classification: I Thyromental Distance: 4-6 cm Respiratory: Lungs clear Cardiovascular: Regular rate, Normal S1, Normal S2, No murmurs Mental/Cognitive Status: Alert/Oriented X3, Normal for patient Cognitive Status: Within normal limits Plan Anesthesia Type: MAC Consent for Procedure(s) Verified and Reviewed: Yes Code Status: Attempt Resuscitation ASA classification: 2-Mild systemic disease Is this case an emergency?: No (Discussed anesthesia plan, consent signed)
[2020-07-29] MEDS ORDERED: fentaNYL 100 MCG/2 ML VIAL IVP PRN (13:04)
[2020-07-29] MEDS ORDERED: ONDANSETRON 4 MG/2 ML VIAL IVP PRN (13:04)
[2020-07-29] MEDS ORDERED: METOCLOPRAMIDE 10 MG/2 ML VIAL IVP PRN (13:04)
[2020-07-29] MEDS ORDERED: ATROPINE ABBOJECT 1 MG/10 ML SYRINGE IVP PRN (13:04)
[2020-07-29] MEDS ORDERED: ePHEDrine 50 MG/ML VIAL IVP PRN (13:04)
[2020-07-29] MEDS ORDERED: MORPHINE 2 MG/ML CARPUJECT IVP PRN (13:04)
[2020-07-29] MEDS ORDERED: NALOXONE 0.4 MG/ML VIAL IVP PRN (13:04)
[2020-07-29] MEDS ORDERED: HYDROmorphone 0.5 MG/0.5 ML SYRINGE IVP PRN (13:04)
[2020-07-29] MEDS ORDERED: LACTATED RINGERS 1,000 ML IV SCH (14:00)
[2020-07-29] MEDS ORDERED: LIDOCAINE 1%-EPI 1:100000 20 ML MDV SUBQ ONE (17:15)
[2020-07-29] MEDS ORDERED: LIDOCAINE 2%-EPI 1:100000 20 ML MDV SUBQ ONE (17:16)
[2020-07-29] MEDS ORDERED: FERRIC SUBSULFATE 8 ML SOLUTION (FOR OR) TOP ONE (17:16)
--- NOTE | 2020-07-29 18:02 | OPERATIVE REPORT ---
Operative Report - General Procedure Date: 07/29/20 Planned Procedure: LEEP Procedure Pre-Op Diagnosis: LUIS 2/3 Procedure Performed: LEEP Procedure Post Op Diagnosis: Same - Procedure Note Primary Surgeon: Ashley Gonsalves MD Anesthesia Provider: Martin Durán CRNA Anesthesia Technique: Local, Moderate sedation Pathology: 1) Ectocervix 2) Endocervix; anterior 3) Endocervix, posterior 4) Endoecervix, right lateral in 2 pieces 5) Endocervical curettage IV Fluids (mL): 600 (see anesthesia report) Estimated Blood Loss (mL): 5 Urine Output (mL): 0 (voided prior to procedure) Indications: Patient is a 44 yo who was undergoing a pap smear in preparation for a hysterectomy and was found to have LUIS-3 on ECC. She presents for a LEEP procedure today. Findings: Patulous cervix without obvious lesions Complications: None - Other Other Information/Narrative: The patient was prepped and draped in the usual sterile fashion and placed in the dorsal lithotomy position. A grounding pad was placed on the patients right anterior thigh. A urine test was negative. A time out was performed, correctly identifying the patient and the LEEP procedure. At this time, a bivalved nonconductive speculum was placed in the vagina. Lugol's solution was painted along the entire cervix and vaginal wall. Areas of non-uptake were were limited and noted to be around the inner aspect of the squamocolumnarjunction. Approximately 10 mL of 1% lidocaine with epinephrine and 10 cc of 2% lidocaine with epinephrine was injected and 4:00 and 8:00 at portio of the cervix and circumferentially along the cervix. A 25 mm loop electrode was used to remove the anterior portion of the cervix. The excised ectocervical biopsy was sent to pathology. A 20 mm loop electrode was used to obtain a top hat for excision of the endocervix in 3 parts. An endocervical curettage was performed and specimen and sent to pathology. The bed of the excised cervical tissue along the cervix was cauterized using the rollerball. A generous plug of Monsels solution was placed on the cervical bed. Hemostasis was noted. All instruments were removed from vagina at this point. The patient tolerated the procedure well and without complication. She was brought to the PACU in stable condition.
[2020-07-29 18:09] VITALS: BP 116/78
--- NOTE | 2020-07-29 18:25 | ANESTHESIA POST OP EVALUATION ---
Anesthesia Post Eval - Post Anesthesia Eval Vitals: Last Vital Signs Temp 36.4 C L 07/29/20 18:00 Pulse 65 07/29/20 18:00 Resp 14 07/29/20 18:00 BP 116/78 07/29/20 18:00 Pulse Ox 100 07/29/20 18:00 CV Function Including HR & BP: positive: Stable Pain Control: positive: Satisfactory Nausea & Vomiting: positive: Negative Mental Status: positive: Baseline Respiratory Status: Airway Patent Hydration Status: Satisfactory Anesthesia Complications: positive: None (Awake alert comfortable. heading home)
== END 2020-07-29 10:38 | disposition home or self-care (01) ==
LOC: SDS 10:37
PROVIDERS: ATTEND Obstetrics & Gynecology
PROC: 0UBC7ZX Excision of Cervix, Via Natural or Artificial Opening, Diagnostic (ICD-10-PCS; principal; 2020-07-29 12:00)
DX: D06.9 Carcinoma in situ of cervix, unspecified (principal); N92.0 Excessive and frequent menstruation with regular cycle; I10 Essential (primary) hypertension; G47.30 Sleep apnea, unspecified
CPT/HCPCS: 57461; 81025; J7120

== ENCOUNTER 2020-08-28 10:14 | Outpatient (CLI) | payer MEDICAID ==
[2020-08-28 10:35] LABS: BASOPHILS # (AUTO) 0.1 10^3/uL (0.0-0.1); BASOPHILS % (AUTO) 2.1 %; EOSINOPHILS # (AUTO) 0.1 10^3/uL (0.0-0.7); EOSINOPHILS % (AUTO) 2.6 %; HGB - HEMOGLOBIN 11.7 g/dL (12.0-16.0); LYMPHOCYTES # (AUTO) 1.6 10^3/uL (1.5-3.5); LYMPHOCYTES % (AUTO) 35.2 %; MEAN CORPUSCULAR HEMOGLOBIN 30.7 pg (27.0-31.0); MEAN CORPUSCULAR HGB CONC 32.2 g/dL (32.0-36.0); MEAN CORPUSCULAR VOLUME 95.3 fL (81.0-99.0); MEAN PLATELET VOLUME 8.8 fL (7.9-10.8); MONOCYTES # (AUTO) 0.6 10^3/uL (0.0-1.0); MONOCYTES % (AUTO) 13.5 %; NEUTROPHILS # (AUTO) 2.2 10^3/uL (1.5-6.6); NEUTROPHILS % (AUTO) 46.4 %; PLT - PLATELET COUNT 353 10^3/uL (130-450); RED BLOOD COUNT 3.81 10^6/uL (4.20-5.40); WHITE BLOOD COUNT 4.7 x10^3/uL (4.8-10.8)
== END 2020-08-28 10:15 | disposition home or self-care (01) ==
LOC: LAB 10:14
PROVIDERS: ATTEND Obstetrics & Gynecology
DX: Z01.812 Encounter for preprocedural laboratory examination (principal); D06.9 Carcinoma in situ of cervix, unspecified; N92.0 Excessive and frequent menstruation with regular cycle; R10.2 Pelvic and perineal pain; N93.9 Abnormal uterine and vaginal bleeding, unspecified; Z20.828 Contact with and (suspected) exposure to other viral communicable diseases
CPT/HCPCS: 36415; 85025

== ENCOUNTER 2020-09-02 10:15 | Day surgery (SDC) | payer MEDICAID ==
[~2020-09-02 10:15] MED LIST: ACETAMINOPHEN 1,000 MG/100 ML 100 ML IV ONE; BUPIVACAINE 0.5%-EPI 1:200000 PF 30 ML VIAL ONE; CELECOXIB 100 MG CAPSULE PO ONE; GABAPENTIN 400 MG CAPSULE ONE; METHYLENE BLUE 0.5% 50 MG/10 ML AMPULE ONE; ceFAZolin 2 GM/50 ML 2 GM/50 ML BAG IV ONE
[2020-09-02 10:32] LABS: HCG UR QUAL NEGATIVE
[2020-09-02] MEDS ORDERED: LACTATED RINGERS 1,000 ML IV ONE ×2 (10:41→17:42)
[2020-09-02] MEDS: SCOPOLAMINE PATCH TOP SCH ×2 (10:49→18:40)
--- NOTE | 2020-09-02 10:56 | ANESTHESIA ---
Pre-Anesthesia VS, & Labs - Diagnosis Pelvic pain, LUIS-3, Menorrhagia, abnormal bleeding - Procedure LAVH, Salpingectomy, Cysto Vital Signs: Temp Pulse Resp BP Pulse Ox 36.6 C 98 16 135/84 H 99 09/02/20 10:23 09/02/20 10:23 09/02/20 10:23 09/02/20 10:23 09/02/20 10:23 Height: 5 ft Weight (kg): 59.5 kg Body Mass Index: 25.6 BMI Classification: Overweight - NPO >8 hours - Is Patient ?: No - Lab Results Lab results reviewed: Yes Home Medications and Allergies Active Medications Scopolamine HBr (Scopolamine Patch) 1 patch TOP Q3D LULU Stop: 09/02/20 11:01 Last Admin: 09/02/20 10:49 Dose: 1 patch Documented by: No Known Home Medications 07/20/20 Allergies/Adverse Reactions: Allergies Allergy/AdvReac Type Severity Reaction Status Date / Time bee venom protein (honey bee) Allergy Severe Anaphylaxis Verified 06/05/19 15:45 Penicillins Allergy Severe Anaphylaxis Verified 06/05/19 15:45 Anes History & Medical History - Anesthetic History Anesthesia Complications: reports: No previous complications (Only had LEEP under sedation. Has motion sickness, scopalamine ordered.) Family history of Anesthesia Complications: Denies Family history of Malignant Hyperthermia: Denies - Medical History Cardiovascular: reports: Hypertension (No meds.) Pulmonary: reports: Sleep apnea (Witnessed by , needs to go for sleep study) Gastrointestinal: reports: None Urinary: reports: None Neuro: reports: Headaches Musculoskeletal: reports: None Endocrine/Autoimmune: reports: None Skin: reports: None Smoking Status: Current every day smoker Psychosocial: reports: Depression (No meds, going for counseling), Anxiety - Surgical History Gynecologic: section, LEEP (Cervical surgery) Exam General: Alert, Oriented x3, Cooperative, No acute distress, Mild distress Dental: WNL Mouth Openin Fingerbreadth Neck Mobility: Normal Mallampati classification: II Thyromental Distance: 4-6 cm Respiratory: Lungs clear Cardiovascular: Regular rate Plan Anesthesia Type: General, Transverse Abdominis Plane (TAP) Block (TAP PRN if o pen procedure.) Consent for Procedure(s) Verified and Reviewed: Yes Code Status: Attempt Resuscitation ASA classification: 2-Mild systemic disease Is this case an emergency?: No (Discussed anesthetic)
[2020-09-02] MEDS ORDERED: MORPHINE 2 MG/ML CARPUJECT IVP PRN (10:58)
[2020-09-02] MEDS ORDERED: NALOXONE 0.4 MG/ML VIAL IVP PRN (10:58)
[2020-09-02] MEDS ORDERED: ePHEDrine 50 MG/ML VIAL IVP PRN (10:58)
[2020-09-02] MEDS ORDERED: METOCLOPRAMIDE 10 MG/2 ML VIAL IVP PRN (10:58)
[2020-09-02] MEDS ORDERED: HYDROmorphone 0.5 MG/0.5 ML SYRINGE IVP PRN (10:58)
[2020-09-02] MEDS ORDERED: fentaNYL 100 MCG/2 ML VIAL IVP PRN (10:58)
[2020-09-02] MEDS ORDERED: ONDANSETRON 4 MG/2 ML VIAL IVP PRN (10:58)
[2020-09-02] MEDS ORDERED: ATROPINE ABBOJECT 1 MG/10 ML SYRINGE IVP PRN (10:58)
[2020-09-02] MEDS ORDERED: LACTATED RINGERS 1,000 ML IV SCH (11:00)
[2020-09-02] MEDS ORDERED: PROPOFOL 200 MG/20 ML VIAL IVP ONE ×2 (13:16→15:38)
[2020-09-02] MEDS ORDERED: ROCURONIUM 50 MG/5 ML VIAL ONE ×2 (13:16→16:01)
[2020-09-02] MEDS ORDERED: DEXAMETHASONE 4 MG/ML VIAL ONE ×2 (13:16→15:10)
[2020-09-02] MEDS ORDERED: LIDOCAINE-MPF 2% 5 ML VIAL ONE ×2 (13:16→15:38)
[2020-09-02] MEDS ORDERED: ONDANSETRON 4 MG/2 ML VIAL ONE ×2 (13:16→15:11)
[2020-09-02] MEDS ORDERED: MIDAZOLAM 2 MG/2 ML VIAL ONE (13:16)
[2020-09-02] MEDS ORDERED: fentaNYL 100 MCG/2 ML VIAL ONE ×2 (13:16→17:18)
[2020-09-02] MEDS ORDERED: BUPIVACAINE 0.5%-EPI 1:200000 PF 30 ML VIAL ONE (13:31)
[2020-09-02] MEDS ORDERED: PHENAZOPYRIDINE 100 MG TABLET PO ONE (13:36)
[2020-09-02] MEDS ORDERED: CLINDAMYCIN 900 MG/50 ML 50 ML IV SCH (13:41)
[2020-09-02] MEDS ORDERED: SODIUM CHLORIDE 0.9% IV SCH (13:42)
[2020-09-02] MEDS ORDERED: GENTAMICIN PER PHARMACY IV SCH (13:42)
[2020-09-02] MEDS ORDERED: SODIUM CHLORIDE 0.9% IV ONE (14:00)
[2020-09-02] MEDS ORDERED: CLINDAMYCIN IV 900 MG/50 ML IV ONE (14:00)
[2020-09-02] MEDS ORDERED: GENTAMICIN IV ONE (14:00)
[2020-09-02] MEDS ORDERED: METHYLENE BLUE 0.5% 50 MG/10 ML AMPULE IR ONE (14:17)
[2020-09-02] MEDS ORDERED: BUPIVACAINE 0.5%-EPI 1:200000 PF 30 ML VIAL SUBQ ONE ×2 (14:17)
[2020-09-02] MEDS ORDERED: ePHEDrine 50 MG/ML VIAL IVP ONE (14:30)
[2020-09-02] MEDS ORDERED: SODIUM CHLORIDE 0.9% 10 ML ONE (14:31)
[2020-09-02] MEDS ORDERED: MAGNESIUM SULFATE 1 GM/2 ML VIAL ONE (15:10)
[2020-09-02] MEDS ORDERED: METOPROLOL 5 MG/5 ML VIAL IVP ONE (15:11)
[2020-09-02] MEDS ORDERED: PROPOFOL 500 MG/50 ML 500 MG/50 ML VIAL ONE ×2 (15:24→16:50)
[2020-09-02] MEDS ORDERED: SUGAMMADEX 200 MG/2 ML VIAL IVP ONE (15:32)
[2020-09-02] MEDS ORDERED: SEVOFLURANE 250 ML LIQUID INH ONE (15:33)
[2020-09-02] MEDS ORDERED: ROPIVACAINE 0.5% PF 20 ML AMPULE ONE (15:38)
[2020-09-02] MEDS ORDERED: HYDROmorphone 1 MG/ML CARPUJECT ONE (15:43)
[2020-09-02] MEDS ORDERED: KETOROLAC 30 MG/ML VIAL ONE (17:13)
[2020-09-02] MEDS ORDERED: LIDOCAINE 2% URO-JET 5 ML SYRINGE UR ONE (17:19)
[2020-09-02] MEDS ORDERED: oxyCODONE 5 MG TABLET PO PRN (17:57)
[2020-09-02] MEDS ORDERED: ONDANSETRON ODT 4 MG TABLET TL PRN (17:57)
[2020-09-02] MEDS ORDERED: HYDROmorphone 1 MG/ML CARPUJECT IVP PRN (17:57)
[2020-09-02] MEDS ORDERED: SCOPOLAMINE PATCH TOP PRN (17:57)
[2020-09-02] MEDS ORDERED: SIMETHICONE CHEW 80 MG TABLET PO PRN (17:57)
[2020-09-02] MEDS ORDERED: KETOROLAC 30 MG/ML VIAL IVP SCH (18:00)
--- NOTE | 2020-09-02 18:02 | OPERATIVE REPORT ---
Operative Report - General Procedure Date: 09/02/20 Planned Procedure: Total laparoscopic hysterectomy with bilateral salpingectomy and cystoscopy Pre-Op Diagnosis: pelvic pain, LUIS-3 Procedure Performed: Total laparoscopic hysterectomy with bilateral salpingectomy, lysis of adhesions, cystoscopy Post Op Diagnosis: Same and adhesive disease - Procedure Note Primary Surgeon: Ashley Gonsalves MD Secondary Surgeon: Vick Garcia MD Anesthesia Provider: Daria Cleary CRNA Anesthesia Technique: General ET tube Pathology: Uterus with bilateral tubes and cervix IV Fluids (mL): 2,200 Estimated Blood Loss (mL): 250 Urine Output (mL): 450 Indications: Patient is a 45-year-old G7, P6 here for preop evaluation for hysterectomy. She was last seen in clinic on 06/22/2020 to discuss menorrhagia and pelvic pressure. Patient reports that her menses are heavy and irregular. She also has significant pelvic pain. She recently underwent a pap smear, which returned with ASCUS/HPV positive. Had LUIS-3 on colposcopy and recently underwent LEEP procedure. She had an endometrial biopsy at that visit that returned benign. Pelvic us on 07/04/2020 showed a heterogeneous uterus without a focal lesion and of normal size. She has had 7 pregnancies and 7 deliveries including 1 at 24 weeks that may have been classical. Followed with NND. Here for definitive management with hysterectomy. Findings: Signifcant anterior abdominal wall adhesions and thick baldder adhesions to anterior of uterus. Rectus muscles visible for abdominal/pelvic exploration suggestive of possible fascial dehiscence after prior surgery. Normal appearing fallopian tubes and ovaries. Uterus slightly enlarged and boggy. Normal survey of the abdomen. Complications: None - Other Other Information/Narrative: Risks benefits and alternatives of the procedure were reviewed. Consent was again confirmed. Patient was brought to the operating room and underwent general anesthesia. She was placed in dorsal lithotomy position with legs resting in yellowfin stirrups. SCDs were in place and activated. Clindamycin 900 g and gentamicin 5 mg/kg IV was administered prior to start of procedure. She was prepped and draped in the usual sterile fashion. Surgical timeout was performed. Bimanual exam was performed. Sterile speculum was placed. The cervix was visualized and a total of 20 cc of 0.25% bupivicaine with epinephrine was injected into the uterosacral ligaments. The Information Clerk Cashier uterine manipulator was placed, confirming that the cup was flush with the vaginal fornices. It was attached to the Karmasphere uterine positioning system. Corea catheter was placed, the bladder was drained, and the bladder was then back filled with 50 cc of dilute methylene blue. The catheter was then clamped. The base of the umbilicus was anesthetized with intradermal injection of 0.5% Marcaine. A 5 mm skin incision was made with a scalpel. A 5 mm blunt trocar was inserted under direct visualization using Visiport. Once the port was confirmed to be placed intraperitoneally, the abdomen was insufflated to 15 mmHg with CO2 gas Exploration of the abdomen and pelvis was confirmed that no injury was sustained with placement of the trocar. Two additional 5 mm ports were placed in the right and left lower quadrants, taking care to avoid the epigastric arteries, while under direct visualization via laparoscopic guidance. The abdomen was explored with the laparoscope, with findings as noted. Lysis of adhesions was performed, mobilizing the colon from the left pelvic sidewall and the omentum form the anterior abdominal wall. The left fallopian tube was grasped and elevated at the fimbriated end. The underlying mesosalpinx was sealed and resected to theinsertion point onthe uterine cornua using the Ligarsure device. The round ligament on the left aspect of the uterus was sealed/transected/and divided. The uterine ovarian ligament was transected using the LigaSure bipolar device. A bladder flap was mobilized by dividing the round ligaments using the bipolar cutting forceps, and the peritoneum on the vesicouterine fold was incised to mobilize the bladder. Once the colpotomy ring was skeletonized and in position, the uterine arteries were sealed using the bipolar forceps at the level of the colpotomy ring. This was repeated on the right aspect of the uterus in the same manner. The bladder dissection was performed over the colpotomy ring. Colpotomy was performed using the Harmonic scalpel, resulting in separation of the uterus. The uterus was then delivered through the vagina. Attention was then turned to the vaginal cuff closure. The right lower quadrant port was removed and the incision was extended to accommodate a 10 mm port. The 5 mm port was replaced with a 10 mm port. V-Loc suture was passed through the port. The vaginal cuff was closed with a running suture using V-Loc suture. Closure of the cuff was airtight and abdominal insufflation was maintained post closure. Good hemostasis was noted. At no time was spillage of methylene blue noted in the surgical field. The vaginal cuff was visualized internally and noted to have good hemostasis. Surgicel was applied to the pelvic sidewalls. Ricardo-Guadalupe device was placed in the 10 mm port site, which was then closed under direct visualization. The abdomen was partially desufflated. Pedicles were observed under decreased pressure and good hemostasis was again confirmed. Abdomen was then completely desufflated. All instruments were removed from the abdomen. Skin was closed with interrupted subcuticular stitches using 4-0 Monocryl. Dermabond was applied over the suture sites. We then turned our attention to the cystoscopic portion of the procedure. Corea catheter was removed and the cystoscope was inserted. Bladder was instilled with NS. A survey of the bladder showed no trauma or presence of suture in the bladder topography. Patient had been pretreated with pyridium. Vigorous ureteral jets were observed bilaterally. Cystoscope was removed after bladder was drained. Corea catheter was replaced. The final sponge needle and instrument counts were correct at completion of the procedure patient was awakened taken to the postanesthesia care unit in stable condition. Dr. Garcia assisted with suturing, retraction, and completion of their side of the hysterectomy.
--- NOTE | 2020-09-02 18:29 | ANESTHESIA POST OP EVALUATION ---
Anesthesia Post Eval - Post Anesthesia Eval Vitals: Last Vital Signs Temp 37.4 C 09/02/20 18:00 Pulse 94 09/02/20 18:05 Resp 22 09/02/20 18:05 BP 109/57 L 09/02/20 18:05 Pulse Ox 97 09/02/20 18:05 CV Function Including HR & BP: positive: Stable Pain Control: positive: Satisfactory Nausea & Vomiting: positive: Negative Mental Status: positive: Baseline Respiratory Status: Airway Patent Anesthesia Complications: positive: None (Awake and alert. Taking PO ice chips. Transferred to [facility].)
[2020-09-02] MEDS: LACTATED RINGERS 1,000 ML IV SCH ×2 (18:39→23:56)
[2020-09-02] MEDS: ACETAMINOPHEN 500 MG TABLET PO SCH (18:39)
[2020-09-02] MEDS: DOCUSATE SODIUM 100 MG CAPSULE PO SCH (20:39)
[2020-09-02] MEDS: GABAPENTIN 300 MG CAPSULE PO SCH (21:24)
[2020-09-02] MEDS: KETOROLAC 30 MG/ML VIAL IVP SCH (23:47)
[2020-09-03] MEDS: ACETAMINOPHEN 500 MG TABLET PO SCH ×2 (02:00→09:46)
[2020-09-03 05:42] LABS: BASOPHILS % (AUTO) 0.2 %; HGB - HEMOGLOBIN 9.2 g/dL (12.0-16.0); LYMPHOCYTES % (AUTO) 8.4 %; MEAN CORPUSCULAR HEMOGLOBIN 30.1 pg (27.0-31.0); MEAN CORPUSCULAR HGB CONC 31.3 g/dL (32.0-36.0); MEAN CORPUSCULAR VOLUME 96.1 fL (81.0-99.0); MEAN PLATELET VOLUME 9.4 fL (7.9-10.8); MONOCYTES # (AUTO) 0.9 10^3/uL (0.0-1.0); MONOCYTES % (AUTO) 7.7 %; NEUTROPHILS # (AUTO) 9.6 10^3/uL (1.5-6.6); NEUTROPHILS % (AUTO) 83.4 %; PLT - PLATELET COUNT 267 10^3/uL (130-450); RED BLOOD COUNT 3.06 10^6/uL (4.20-5.40); WHITE BLOOD COUNT 11.5 x10^3/uL (4.8-10.8)
[2020-09-03] MEDS: GABAPENTIN 300 MG CAPSULE PO SCH (06:33)
[2020-09-03] MEDS: KETOROLAC 30 MG/ML VIAL IVP SCH ×2 (06:34→11:51)
[2020-09-03] MEDS: DOCUSATE SODIUM 100 MG CAPSULE PO SCH (08:53)
[2020-09-03] MEDS ORDERED: ENOXAPARIN 40 MG/0.4 ML SYRINGE SUBQ SCH (09:00)
[2020-09-03] MEDS: LACTATED RINGERS 1,000 ML IV SCH (09:47)
[2020-09-03 13:40] VITALS: BP 112/69
== END 2020-09-03 14:25 | disposition home or self-care (01) ==
LOC: SDS 10:15 → MS2 18:08 → SDS 09-03 14:25
PROVIDERS: ATTEND Obstetrics & Gynecology
PROC: 0UT7FZZ Resection of Bilateral Fallopian Tubes, Via Natural or Artificial Opening With Percutaneous Endoscopic Assistance (ICD-10-PCS; 2020-09-02)
PROC: 0UT9FZZ Resection of Uterus, Via Natural or Artificial Opening With Percutaneous Endoscopic Assistance (ICD-10-PCS; principal; 2020-09-02 12:00)
DX: D06.9 Carcinoma in situ of cervix, unspecified (principal); N92.0 Excessive and frequent menstruation with regular cycle; N80.0 Endometriosis of uterus; N99.4 Postprocedural pelvic peritoneal adhesions; I10 Essential (primary) hypertension; F25.9 Schizoaffective disorder, unspecified; F31.30 Bipolar disorder, current episode depressed, mild or moderate severity, unspecified; F43.10 Post-traumatic stress disorder, unspecified; F41.1 Generalized anxiety disorder; F17.200 Nicotine dependence, unspecified, uncomplicated; F10.21 Alcohol dependence, in remission; Z79.899 Other long term (current) drug therapy
CPT/HCPCS: 36415; 58552; 81025; 85025; A9270; J0131; J0690; J1170; J1580; J1650; J3490; J7120

== ENCOUNTER 2021-04-16 11:59 | Emergency (ER) | payer MEDICAID ==
[2021-04-16 12:14] VITALS: BP 147/74
--- NOTE | 2021-04-16 12:27 | ED Physician Documentation ---
History of Present Illness - Stated complaint Stated Complaint: COUGH/SOA/FEVER - Chief complaint Chief Complaint: Resp - History obtained from History obtained from: Patient - History of Present Illness Timing: How many days ago (2-3) Pain level max: 0 Pain level now: 0 - Additonal information Additional information: Patient has had a cough and congestion for the past 2 to 3 days. Has had 2 children tested positive for Covid. She was vaccinated with the [employer] vaccine. She states that her work is requesting a Covid test. 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: No - Immunizations Immunizations are current?: Yes Immunizations: TDAP >10years/unknown - POLST Patient has POLST: No PD ED PE NORMAL - Vitals Vital signs reviewed: Yes - General General: Alert and oriented X 3, No acute distress - HEENT HEENT: Moist mucous membranes - Neck Neck: Supple, no meningeal sign - Cardiac Cardiac: RRR - Respiratory Respiratory: No respiratory distress, Clear bilaterally - Derm Derm: Warm and dry - Neuro Neuro: Alert and oriented X 3 Results - Vitals Vitals: Vital Signs - 24 hr 04/16/21 12:09 Temperature 37.1 C Heart Rate 81 Respiratory 20 Rate Blood Pressure 147/74 H O2 Saturation 99 Oxygen O2 Source Room air PD MEDICAL DECISION MAKING - ED course Complexity details: considered differential, d/w patient ED course: Covid testing performed. Patient will self quarantine until results are back. Patient counseled regarding signs and symptoms for which I believe and urgent re-evaluation would be necessary. Patient with good understanding of and agreement to plan and is comfortable going home at this time This document was made in part using voice recognition software. While efforts are made to proofread this document, sound alike and grammatical errors may occur. Departure - Departure Disposition: 01 Home, Self Care Clinical Impression: Viral URI with cough Condition: Good Instructions: ED Viral Syndrome Follow-Up: your,doctor in 1 week if not better [Other] Comments: You have a Covid test pending. You need to self quarantine until the result is done and negative. Do not leave your house. Do not get near anybody. The results should be done in 48 to 72 hours. We will call with a positive result, the fastest way to get a negative result for confirmation though is to go to the hospital website at [email or web address], click on the my [facility] tab and sign up for the patient portal. If any friends or family get sick and would like to have a Covid test done, but do not have signs or symptoms that would necessitate being hospitalized, we encourage testing through our coronavirus swabbing station, call [phone] to schedule an appointment. Discharge Date/Time: 04/16/21 12:41
== END 2021-04-16 12:41 | disposition home or self-care (01) ==
LOC: ED 11:59
DX: U07.1 COVID-19 (principal); J06.9 Acute upper respiratory infection, unspecified; F17.200 Nicotine dependence, unspecified, uncomplicated
CPT/HCPCS: 99282; 99283

== ENCOUNTER 2022-09-09 05:27 | Outpatient (CLI) | payer MEDICAID | END 2022-09-09 05:28 | disposition E | LOC: EMS 05:27 ==